=== PATIENT | female | born 1950 | race Caucasian/White ===

== ENCOUNTER 2016-09-25 11:17 | Emergency (ER) | payer MEDICARE ==
[~2016-09-25] VITALS: Ht 170.2 cm; Wt 91.3 kg
[2016-09-25] MEDS ORDERED: SODIUM CHLORIDE 0.9% 1,000ML IVBOLUS ONE (12:00)
[2016-09-25] MEDS ORDERED: SODIUM CHLORIDE FLUSH 10ML SYR IVF ONE (12:00)
[2016-09-25 12:20] LABS: HEMATOCRIT 36.7 % (34.6-47.8); HEMOGLOBIN 12.2 g/dL (11.7-16.4); WHITE BLOOD COUNT 8.6 x10^3/uL (3.4-10)
[2016-09-25] MEDS ORDERED: PLEASE ENTER ALLERGIES MC SCH ×2 (12:30)
[2016-09-25 12:43] LABS: BLOOD UREA NITROGEN 26 mg/dL (7-18)
[2016-09-25 12:48] LABS: IS PT STATUS REG ER OR PRE ER? YES
[2016-09-25 14:52] VITALS: BP 158/80
== END 2016-09-25 15:20 | disposition home or self-care (01) ==
LOC: ED 15:14
DX: S63.502A Unspecified sprain of left wrist, initial encounter (principal); S16.1XXA Strain of muscle, fascia and tendon at neck level, initial encounter; S80.212A Abrasion, left knee, initial encounter; S40.212A Abrasion of left shoulder, initial encounter; R55 Syncope and collapse; E11.9 Type 2 diabetes mellitus without complications; I10 Essential (primary) hypertension; W01.0XXA Fall on same level from slipping, tripping and stumbling without subsequent striking against object, initial encounter; Y93.89 Activity, other specified; Y92.89 Other specified places as the place of occurrence of the external cause; Y99.8 Other external cause status
CPT/HCPCS: 36415; 70450; 71010; 72125; 73030; 73110; 73564; 80048; 82040; 84484; 85025; 93005; 96360; 99285; J7030